=== PATIENT | female | born 1950 | race Caucasian/White ===

== ENCOUNTER → 2023-11-09 09:53 | Outpatient (REF) | payer MEDICARE, OTHER, SELFPAY | LOC: RAD 09:53 | PROVIDERS: ATTENDING PHYSICIAN Internal Medicine | DX: M81.0 Age-related osteoporosis without current pathological fracture (principal) | CPT/HCPCS: 77080 ==

== ENCOUNTER → 2023-11-13 14:22 | Outpatient (REF) | payer MEDICARE, OTHER, SELFPAY | LOC: WDC 14:22 | PROVIDERS: ATTENDING PHYSICIAN Internal Medicine | DX: Z12.31 Encounter for screening mammogram for malignant neoplasm of breast (principal) | CPT/HCPCS: 77063; 77067 ==

== ENCOUNTER → 2024-11-17 11:18 | Outpatient (REF) | payer MEDICARE, OTHER, SELFPAY | LOC: WDC 11:18 | PROVIDERS: ATTENDING PHYSICIAN Internal Medicine | DX: Z12.31 Encounter for screening mammogram for malignant neoplasm of breast (principal) | CPT/HCPCS: 77063; 77067 ==